=== PATIENT | male | born 1995 | race Caucasian/White ===

== ENCOUNTER 2016-08-20 15:00 | Outpatient (RCR) | payer BC ==
[~2016-08-20 15:00] MED LIST: NORCO 325 MG-51 TAB PO
== END 2016-09-04 08:01 | disposition home or self-care (01) ==
LOC: WSOT 15:00
DX: S62.002D Unspecified fracture of navicular [scaphoid] bone of left wrist, subsequent encounter for fracture with routine healing (principal); S52.122D Displaced fracture of head of left radius, subsequent encounter for closed fracture with routine healing; W18.39XD Other fall on same level, subsequent encounter; Y93.21 Activity, ice skating